=== PATIENT | male | born 1955 | race Caucasian/White ===

== ENCOUNTER → 2023-11-26 06:20 | Outpatient (REF) | payer MEDICARE, OTHER, SELFPAY ==
[2023-11-26 07:27] LABS: % Basophils 0.6 % (0-2); % Eosinophils 3.4 % (0-6); % Immature Granulocytes 0.2 % (0-0.5); % Lymphocytes 35.5 % (20.5-51.1); % Monocytes 8.4 % (1.7-9.3); % Neutrophils 51.9 % (42.2-75.2); Absolute Eosinophils 0.2 10^3/uL (0-0.7); Absolute Lymphocytes 1.8 10^3/uL (1.2-3.4); Absolute Monocytes 0.4 10^3/uL (0.1-0.6); Absolute Neutrophils 2.6 10^3/uL (1.4-6.5); Hematocrit 43.8 % (39.0-52.0); Hemoglobin 15.1 g/dL (13.0-18.0); Mean Corp Hgb Conc. 34.5 g/dL (33.0-37.0); Mean Corpuscular Hgb 30.8 pg (27.0-31.0); Mean Corpuscular Volume 89.2 fL (80.0-94.0); Mean Platelet Volume 9.1 fL (7.4-10.4); Nucleated Red Blood Cells % 0 % (-); Platelet Count 232 10^3/uL (130-400); Red Blood Cell Count 4.91 10^6/uL (4.70-6.10); Red Cell Dist. Width 12.6 % (11.5-14.5)
[2023-11-26 07:50] LABS: ALT (SGPT) 23 U/L (0-50); AST (SGOT) 24 U/L (17-59); Alkaline Phosphatase 62 U/L (38-126); Blood Urea Nitrogen 14 mg/dl (9-20); Calcium 9.5 mg/dl (8.4-10.2); Carbon Dioxide 30 mmol/L (22-30); Chloride 101 mmol/L (98-107); Glucose 100 mg/dl (70-99); HDL Cholesterol 42 mg/dl; LDL Cholesterol, Calculated 76 mg/dl; Potassium 3.9 mmol/L (3.5-5.1); Sodium 140 mmol/L (135-145); Total Bilirubin 1.3 mg/dl (0.2-1.3); Total Cholesterol 137 mg/dl (50-199); Total Protein 7.2 g/dl (6.3-8.2); Triglyceride 95 mg/dl (10-149); Very Low Density Lipoprotein 19 mg/dl (0-30); eGFR > 60.00
== END ==
LOC: REG 06:20
PROVIDERS: ATTENDING PHYSICIAN Family Medicine
DX: R73.01 Impaired fasting glucose (principal); E78.2 Mixed hyperlipidemia; D12.6 Benign neoplasm of colon, unspecified
CPT/HCPCS: 36415; 80053; 80061; 83036; 85025

== ENCOUNTER → 2024-03-07 06:30 | Outpatient (REF) | payer MEDICARE, OTHER, SELFPAY ==
[2024-03-07 07:54] LABS: Blood Urea Nitrogen 14 mg/dl (9-20); Calcium 9.3 mg/dl (8.4-10.2); Carbon Dioxide 25 mmol/L (22-30); Chloride 105 mmol/L (98-107); Glucose 106 mg/dl (70-99); Potassium 4.3 mmol/L (3.5-5.1); Sodium 139 mmol/L (135-145); eGFR > 60.00
== END ==
LOC: REG 06:30
PROVIDERS: ATTENDING PHYSICIAN Thoracic Surgery (Cardiothoracic Vascular Surgery)
DX: I71.21 Aneurysm of the ascending aorta, without rupture (principal); Z01.818 Encounter for other preprocedural examination
CPT/HCPCS: 36415; 80048

== ENCOUNTER → 2024-03-21 08:20 | Outpatient (REF) | payer MEDICARE, OTHER, SELFPAY | LOC: HWRAD 08:20 | PROVIDERS: ATTENDING PHYSICIAN Surgery Vascular Surgery; FAMILY PHYSICIAN Family Medicine; REFERRING PHYSICIAN Thoracic Surgery (Cardiothoracic Vascular Surgery) | DX: I71.21 Aneurysm of the ascending aorta, without rupture (principal); I72.8 Aneurysm of other specified arteries | CPT/HCPCS: 71275; 74174; Q9967 ==

== ENCOUNTER → 2024-06-09 06:33 | Day surgery (SDC) | payer MEDICARE, OTHER, SELFPAY | LOC: GI 06:33 | PROVIDERS: ATTENDING PHYSICIAN Specialist; FAMILY PHYSICIAN Family Medicine | DX: Z12.11 Encounter for screening for malignant neoplasm of colon (principal); D12.0 Benign neoplasm of cecum; D12.3 Benign neoplasm of transverse colon; K57.30 Diverticulosis of large intestine without perforation or abscess without bleeding; Z86.010 Personal history of colon polyps | CPT/HCPCS: 45380; 88305 ==

== ENCOUNTER → 2024-06-13 06:24 | Outpatient (REF) | payer MEDICARE, OTHER, SELFPAY ==
[2024-06-13 07:51] LABS: ALT (SGPT) 25 U/L (0-50); AST (SGOT) 27 U/L (17-59); Albumin 4.3 g/dl (3.5-5.0); Alkaline Phosphatase 62 U/L (38-126); Blood Urea Nitrogen 13 mg/dl (9-20); Calcium 9.8 mg/dl (8.4-10.2); Carbon Dioxide 28 mmol/L (22-30); Chloride 103 mmol/L (98-107); Glucose 93 mg/dl (70-99); HDL Cholesterol 36 mg/dl; LDL Cholesterol, Calculated 68 mg/dl; Potassium 4.8 mmol/L (3.5-5.1); Sodium 144 mmol/L (135-145); Total Bilirubin 0.7 mg/dl (0.2-1.3); Total Cholesterol 129 mg/dl (50-199); Total Protein 6.9 g/dl (6.3-8.2); Triglyceride 129 mg/dl (10-149); Very Low Density Lipoprotein 25 mg/dl (0-30); eGFR > 60.00
[2024-06-13 08:24] LABS: PSA, Total - Screen 5.08 ng/ml (0.0-4.0)
[2024-06-13 09:29] LABS: Glycohemoglobin (HgbA1c) 5.7 % (4.0-5.6)
== END ==
LOC: REG 06:24
PROVIDERS: ATTENDING PHYSICIAN Family Medicine
DX: R97.20 Elevated prostate specific antigen [PSA] (principal); Z12.5 Encounter for screening for malignant neoplasm of prostate; R73.01 Impaired fasting glucose; E78.2 Mixed hyperlipidemia
CPT/HCPCS: 36415; 80053; 80061; 83036; G0103

== ENCOUNTER → 2024-08-04 11:38 | Outpatient (REF) | payer MEDICARE, OTHER, SELFPAY ==
[2024-08-04 12:49] LABS: Urine Albumin Trace (Neg - Trace); Urine Bilirubin Negative (Negative); Urine Character Clear (Clear); Urine Color Yellow; Urine Glucose Negative (Negative); Urine Ketone Negative (Negative); Urine Leukocyte Trace (Negative); Urine Nitrite Negative (Negative); Urine Occult Blood Negative (Negative); Urine Specific Gravity 1.025 (<1.030); Urine Urobilinogen Negative (Neg - 1+)
[2024-08-04 13:15] LABS: Urine Bacteria Few (Negative); Urine Mucus Moderate; Urine Red Blood Cell 0-2 /HPF (0-2)
== END ==
LOC: REG 11:38
PROVIDERS: ATTENDING PHYSICIAN Specialist
DX: N39.0 Urinary tract infection, site not specified (principal)
CPT/HCPCS: 81003; 81015; 87086

== ENCOUNTER → 2024-12-26 06:18 | Outpatient (REF) | payer MEDICARE, OTHER, SELFPAY ==
[2024-12-26 07:40] LABS: ALT (SGPT) 18 U/L (0-50); AST (SGOT) 19 U/L (17-59); Albumin 4.1 g/dl (3.5-5.0); Alkaline Phosphatase 62 U/L (38-126); Blood Urea Nitrogen 16 mg/dl (9-20); Calcium 9.6 mg/dl (8.4-10.2); Carbon Dioxide 30 mmol/L (22-30); Chloride 104 mmol/L (98-107); Glucose 88 mg/dl (70-99); HDL Cholesterol 41 mg/dl; LDL Cholesterol, Calculated 83 mg/dl; Potassium 4.3 mmol/L (3.5-5.1); Sodium 141 mmol/L (135-145); Total Bilirubin 1.4 mg/dl (0.2-1.3); Total Cholesterol 145 mg/dl (50-199); Total Protein 6.8 g/dl (6.3-8.2); Triglyceride 105 mg/dl (10-149); Very Low Density Lipoprotein 21 mg/dl (0-30); eGFR > 60.00
[2024-12-26 10:05] LABS: Glycohemoglobin (HgbA1c) 5.8 % (4.0-5.6)
== END ==
LOC: REG 06:18
PROVIDERS: ATTENDING PHYSICIAN Family Medicine
DX: E78.2 Mixed hyperlipidemia (principal); R73.01 Impaired fasting glucose
CPT/HCPCS: 36415; 80053; 80061; 83036

== ENCOUNTER → 2025-03-14 06:25 | Outpatient (REF) | payer MEDICARE, OTHER, SELFPAY ==
[2025-03-14 08:05] LABS: Blood Urea Nitrogen 16 mg/dl (9-20); Calcium 9.6 mg/dl (8.4-10.2); Carbon Dioxide 29 mmol/L (22-30); Chloride 107 mmol/L (98-107); Glucose 91 mg/dl (70-99); Potassium 4.7 mmol/L (3.5-5.1); Sodium 142 mmol/L (135-145); eGFR > 60.00
== END ==
LOC: REG 06:25
PROVIDERS: ATTENDING PHYSICIAN Thoracic Surgery (Cardiothoracic Vascular Surgery); FAMILY PHYSICIAN Family Medicine
DX: I71.21 Aneurysm of the ascending aorta, without rupture (principal)
CPT/HCPCS: 36415; 80048

== ENCOUNTER → 2025-03-21 06:41 | Outpatient (REF) | payer MEDICARE, OTHER, SELFPAY | LOC: RAD 06:41 | PROVIDERS: ATTENDING PHYSICIAN Thoracic Surgery (Cardiothoracic Vascular Surgery); FAMILY PHYSICIAN Family Medicine; OTHER PHYSICIAN Thoracic Surgery (Cardiothoracic Vascular Surgery); REFERRING PHYSICIAN Surgery Vascular Surgery | DX: I71.21 Aneurysm of the ascending aorta, without rupture (principal) | CPT/HCPCS: 71275; 74174; Q9967 ==

== ENCOUNTER 2025-03-26 16:46 | Outpatient (RCR) | payer MEDICARE, OTHER, SELFPAY | END 2025-03-26 23:59 | disposition home or self-care (01) | LOC: RPT 16:46 | PROVIDERS: ATTENDING PHYSICIAN Specialist; FAMILY PHYSICIAN Family Medicine | DX: R39.81 Functional urinary incontinence (principal); M62.89 Other specified disorders of muscle; Z73.6 Limitation of activities due to disability; Z85.46 Personal history of malignant neoplasm of prostate; Z90.79 Acquired absence of other genital organ(s) | CPT/HCPCS: 97110; 97112; 97140; 97162; 97530 ==

== ENCOUNTER 2025-04-16 09:53 | Outpatient (RCR) | payer MEDICARE, OTHER, SELFPAY | END 2025-04-16 23:59 | disposition home or self-care (01) | LOC: RPT 09:53 | PROVIDERS: ATTENDING PHYSICIAN Specialist; FAMILY PHYSICIAN Family Medicine | DX: R39.81 Functional urinary incontinence (principal); M62.89 Other specified disorders of muscle; Z73.6 Limitation of activities due to disability; Z85.46 Personal history of malignant neoplasm of prostate; Z90.79 Acquired absence of other genital organ(s) | CPT/HCPCS: 97014; 97110; 97112; 97140 ==

== ENCOUNTER 2025-05-21 09:54 | Outpatient (RCR) | payer MEDICARE, OTHER, SELFPAY | END 2025-05-21 23:59 | disposition home or self-care (01) | LOC: RPT 09:54 | PROVIDERS: ATTENDING PHYSICIAN Specialist; FAMILY PHYSICIAN Family Medicine | DX: R39.81 Functional urinary incontinence (principal); M62.89 Other specified disorders of muscle; Z73.6 Limitation of activities due to disability; Z85.46 Personal history of malignant neoplasm of prostate; Z90.79 Acquired absence of other genital organ(s) | CPT/HCPCS: 97014; 97110; 97112; 97140; 97530 ==

== ENCOUNTER → 2025-06-19 10:48 | Outpatient (REF) | payer MEDICARE, OTHER, SELFPAY ==
[2025-06-19 12:16] LABS: Hematocrit 43.7 % (39.0-52.0); Hemoglobin 14.8 g/dL (13.0-18.0); Mean Corp Hgb Conc. 33.9 g/dL (33.0-37.0); Mean Corpuscular Volume 92.4 fL (80.0-94.0); Nucleated Red Blood Cells % 0 % (-); Platelet Count 236 10^3/uL (130-400); Red Cell Dist. Width 13.1 % (11.5-14.5)
[2025-06-19 12:46] LABS: ALT (SGPT) 22 U/L (0-50); AST (SGOT) 21 U/L (17-59); Albumin 4.2 g/dl (3.5-5.0); Alkaline Phosphatase 64 U/L (38-126); Blood Urea Nitrogen 12 mg/dl (9-20); Calcium 9.4 mg/dl (8.4-10.2); Carbon Dioxide 31 mmol/L (22-30); Chloride 104 mmol/L (98-107); Glucose 97 mg/dl (70-99); HDL Cholesterol 43 mg/dl; LDL Cholesterol, Calculated 79 mg/dl; Potassium 4.5 mmol/L (3.5-5.1); Sodium 140 mmol/L (135-145); Total Protein 6.9 g/dl (6.3-8.2); Very Low Density Lipoprotein 25 mg/dl (0-30); eGFR > 60.00
[2025-06-19 13:26] LABS: Glycohemoglobin (HgbA1c) 5.7 % (4.0-5.6)
== END ==
LOC: REG 10:48
PROVIDERS: ATTENDING PHYSICIAN Family Medicine
DX: E78.2 Mixed hyperlipidemia (principal); R73.01 Impaired fasting glucose; R53.83 Other fatigue; Z13.29 Encounter for screening for other suspected endocrine disorder
CPT/HCPCS: 36415; 80053; 80061; 83036; 84443; 85025

== ENCOUNTER 2025-06-20 09:39 | Outpatient (RCR) | payer MEDICARE, OTHER, SELFPAY | END 2025-06-20 23:59 | disposition home or self-care (01) | LOC: RPT 09:39 | PROVIDERS: ATTENDING PHYSICIAN Specialist; FAMILY PHYSICIAN Family Medicine | DX: R39.81 Functional urinary incontinence (principal); M62.89 Other specified disorders of muscle; Z73.6 Limitation of activities due to disability; Z85.46 Personal history of malignant neoplasm of prostate; Z90.79 Acquired absence of other genital organ(s) | CPT/HCPCS: 97014; 97110; 97112; 97530 ==

== ENCOUNTER 2025-06-27 13:24 | Outpatient (RCR) | payer MEDICARE, OTHER, SELFPAY | END 2025-06-27 15:01 | disposition home or self-care (01) | LOC: RPT 13:24 | PROVIDERS: ATTENDING PHYSICIAN Specialist; FAMILY PHYSICIAN Family Medicine | DX: R39.81 Functional urinary incontinence (principal); M62.89 Other specified disorders of muscle; Z73.6 Limitation of activities due to disability; Z85.46 Personal history of malignant neoplasm of prostate; Z90.79 Acquired absence of other genital organ(s) | CPT/HCPCS: 97014; 97110; 97112; 97530 ==